=== PATIENT | female | born 1960 | race Asian ===

== ENCOUNTER 2017-07-16 12:46 | Emergency (ER) | payer OTHER ==
[~2017-07-16] VITALS: Ht 167.6 cm; Wt 55.3 kg
[2017-07-16] MEDS ORDERED: METFORMIN HCL500 M1 ORAL (12:59)
[2017-07-16] MEDS ORDERED: AMLODIPINE BESYL5 MG ORAL (12:59)
[2017-07-16] MEDS ORDERED: LEVEMIR FL100 UNIT/1 SUBQ (12:59)
[2017-07-16] MEDS ORDERED: Acetaminophen 500mg (ES) tab ORAL ONE (13:15)
[2017-07-16 13:21] VITALS: BP 153/75
--- NOTE | 2017-07-16 13:23 | Emergency Room Report ---
History of Present Illness General Chief Complaint: Multiple Trauma/Fall Source: Patient Present Illness HPI 56-year-old female patient presents ER complaining of left rib pain status post fall last night. Patient reports that she was walking to the kitchen and tripped on a step and fell on her left side. Denies pain and heaviness or problems with ambulation. Denies difficulty breathing. Reports pain with deep inspiration. Denies hitting her head or loss consciousness. Denies vomiting or vision changes. Denies fever, chest pain, shortness of breath. Denies dizziness. Allergies: Coded Allergies: No Known Allergies (Unverified , 07/16/17) Patient History Past Medical History: see triage record Reviewed Nursing Documentation: PMH: Agreed; PSxH: Agreed Nursing Documentation-PMH Past Medical History: No History, Except For Hx Hypertension: Yes Hx Diabetes: Yes Review of Systems All Other Systems: negative except mentioned in HPI Physical Exam Vital Signs Date Time Temp Pulse Resp B/P (MAP) Pulse Ox O2 Delivery O2 Flow Rate FiO2 07/16/17 12:54 98.0 78 18 153/75 98 Room Air 98.1 Sp02 EP Interpretation: reviewed, normal General Appearance: well appearing, no apparent distress, alert, GCS 15, non- toxic Head: normocephalic, atraumatic, other - negative Gordon sign, negative Raccoon eyes Eyes: bilateral eye normal inspection, bilateral eye PERRL ENT: hearing grossly normal, normal pharynx, no angioedema, normal voice, uvula midline, moist mucus membranes Neck: full range of motion Respiratory: lungs clear, normal breath sounds, no rhonchi, no respiratory distress, no accessory muscle use, no wheezing, speaking full sentences, other - no flail chest, no absent breath sounds, no bony deformity Cardiovascular #1: regular rate, rhythm, no edema Gastrointestinal: non tender, soft, no mass, non-distended, no guarding, no rebound Genitourinary: no CVA tenderness Musculoskeletal: back normal, digits/nails normal, gait/station normal, normal range of motion, non-tender, tender - left ribs, no deformity, no ecchymosis Neurologic: alert, oriented x3, responsive, motor strength/tone normal, sensory intact Psychiatric: mood/affect normal Skin: no rash, other - no ecchymosis Lymphatic: no adenopathy Medical Decision Making PA Attestation Dr. Obrien is my supervising Physician whom patient management has been discussed with. Diagnostic Impression: Primary Impression: Rib contusion ER Course Pt. presents to the ED c/o left rib pain Ddx considered but are not limited to fracture, sprain, strain, contusion, , pneumothorax. No absent breath sounds, no difficulty breathing, no flail chest, low suspicion for pneumothorax, will order chest x-ray to rule out. No signs of head trauma, denies head injury, dose not require head imaging at this time. Vital signs: are WNL, pt. is afebrile Ordered X-ray and pain medication. ER COURSE Provided with pain medication. An X-ray of the left ribs was ordered, results show no acute fracture, per the preliminary reading. An X-ray of the chest was ordered, results show no pneumothorax or acute disease , per the preliminary reading. Discuss results with patient. Informed patient treatment for rib fracture and rib contusion similar, rest and NSAIDs. Patient instructed on rest, ice, and heat. ER Precautions given, return if for new or worsening of symptoms including but not limited to SOB, chest pain, difficulty breathing. Followup with primary care provider for further management and referral. Discuss further imaging with MRI/CT as needed. DISCHARGE: -Rx provided for Tylenol for pain symptoms. -Rx provided for Lidocaine patches At this time pt. is stable for d/c to home. Patient is resting comfortably, in no acute distress, nontoxic appearing, talking without difficulty. Will provide printed patient care instructions, and any necessary prescriptions. Patient instructed to follow with primary care provider in 3 - 5 days and to request further orthopedic follow-up. Care plan and follow up instructions have been discussed with the patient prior to discharge. Take medications as directed. Patient questions asked and answered. Patient reports understanding and agreement to treatment plan. ER precautions given, patient instructed to return to ER immediately for any new or worsening of symptoms. - Please note that this Emergency Department Report was dictated using [employer] supervisor technology software, occasionally this can lead to erroneous entry secondary to interpretation by the dictation equipment. Chest X-Ray Diagnostic Results Chest X-Ray Diagnostic Results : Chest X-Ray Ordered: Yes # of Views/Limited/Complete: 1 View Indication: Chest Pain EP Interpretation: Yes PA Xray: Interpretation reviewed, and agrees with findings. Interpretation: no consolidation, no effusion, no pneumothorax, no acute cardiopulmonary disease Impression: No acute disease BEBETO Scribe Text Tone Contreras PA-C Other X-Ray Diagnostic Results Other X-Ray Diagnostic Results : X-Ray ordered: left ribs # of Views/Limited Vs Complete: 4 View Indication: Pain EP Interpretation: Yes PA Xray: Interpretation reviewed, by supervising MD, and agrees with findings. Interpretation: no dislocation, no soft tissue swelling, no fractures Impression: No acute disease PA Scribe Text Tone Contreras PA-C Last Vital Signs Date Time Temp Pulse Resp B/P (MAP) Pulse Ox O2 Delivery O2 Flow Rate FiO2 07/16/17 12:54 98.0 78 18 153/75 98 Room Air 98.1 Disposition: HOME, SELF-CARE Condition: Stable Scripts Lidocaine (Lidocaine) 1 Each Adh..patch 700 MG TP DAILY for 5 Days, #5 PATCH Prov: Raciel Contreras 07/16/17 Acetaminophen* (TYLENOL EXTRA STRENGTH*) 500 Mg Tablet 500 MG ORAL Q8H PRN for Prn Headache/Temp > 101, #30 TAB 0 Refills Prov: Raciel Contreras 07/16/17 Patient Instructions: Rib Contusion Additional Instructions: Patient instructed to follow up with primary care provider and discuss further treatment at that time. Patient instructed rest, ice and heat. Take medications as directed. Patient questions asked and answered. ER precautions given, patient instructed to return to ER immediately for any new or worsening of symptoms. Raciel Contreras July 16, 2017 13:23
[2017-07-16] MEDS ORDERED: TYLENOL EXTRA500 MG ORAL (14:25)
[2017-07-16] MEDS ORDERED: LIDOCAINE700 M1 TP (14:25)
[2017-07-16 14:32] VITALS: BP 153/75
--- NOTE | 2017-07-16 15:18 | Diagnostic Imaging Report ---
Indication: Left rib pain Technique: Multiple views of the left ribs, one view of the chest Comparison: none Findings: Small sclerotic lesion, likely a benign bone island, seen in the anterolateral left third rib. No acute fractures. No gross pneumothorax The lungs and pleural spaces are clear. The heart size is normal Impression: No acute process
== END 2017-07-16 14:33 | disposition home or self-care (01) ==
LOC: EDBD 12:46 → EMR 13:58
DX: S20.212A Contusion of left front wall of thorax, initial encounter (principal); W01.0XXA Fall on same level from slipping, tripping and stumbling without subsequent striking against object, initial encounter; Y92.000 Kitchen of unspecified non-institutional (private) residence as the place of occurrence of the external cause; I10 Essential (primary) hypertension; E11.9 Type 2 diabetes mellitus without complications
CPT/HCPCS: 71045; 99284

== ENCOUNTER 2017-12-10 17:56 | Emergency (ER) | payer OTHER ==
[~2017-12-10] VITALS: Ht 165.1 cm; Wt 55.3 kg
[~2017-12-10 17:56] MED LIST: AMLODIPINE BESYL5 MG ORAL; LEVEMIR FL100 UNIT/1 SUBQ; LIDOCAINE700 M1 TP; METFORMIN HCL500 M1 ORAL; TYLENOL EXTRA500 MG ORAL
[2017-12-10] MEDS ORDERED: LOSARTAN POTASS25 MG ORAL (18:04)
--- NOTE | 2017-12-10 18:32 | Emergency Room Report ---
History of Present Illness General Chief Complaint: Laceration Source: Patient, Medical Record Present Illness HPI 57 YO female presents to the ED c/o laceration to the Left index finger sustained by a cutting knife IRRIGATOR OVERHEAD. pt. denies bleeding at this time, denies taking blood thinning medications. pt. reports pain ix 2/10 in severity. She is right hand dominant. She reports that she is UTD with tetanus vaccination. Allergies: Coded Allergies: No Known Allergies (Unverified , 07/16/17) Patient History Past Medical History: see triage record Past Surgical History: none Pertinent Family History: none Last Menstrual Period: menopause Now: No Reviewed Nursing Documentation: PMH: Agreed; PSxH: Agreed Nursing Documentation-PMH Past Medical History: No History, Except For Hx Hypertension: Yes Hx Diabetes: Yes Review of Systems All Other Systems: negative except mentioned in HPI Physical Exam Vital Signs Date Time Temp Pulse Resp B/P (MAP) Pulse Ox O2 Delivery O2 Flow Rate FiO2 12/10/17 17:58 98.3 75 18 167/82 95 Room Air 98.2 Sp02 EP Interpretation: reviewed, normal General Appearance: no apparent distress, alert, GCS 15, non-toxic Head: normocephalic, atraumatic ENT: hearing grossly normal, normal voice Neck: full range of motion Respiratory: lungs clear, normal breath sounds, speaking full sentences Cardiovascular #1: regular rate, rhythm, normal capillary refill Musculoskeletal: back normal, gait/station normal, normal range of motion, non- tender Neurologic: alert, oriented x3, responsive, motor strength/tone normal, sensory intact, normal gait, speech normal, grossly normal Psychiatric: judgement/insight normal Skin: normal color, no rash, warm/dry, well hydrated, laceration - 0.5cm flap laceration that is aligned well and not bleeding, no obvious fb. mostly superficial Procedures Laceration/Wound Repair Laceration/Wound Repair : Consent: Verbal Wound Location: upper extremity - left index finger Wound's Depth, Shape: flap Wound Length (cm): 1 Wound Explored: clean Irrigated w/ Saline (ccs): 300 Betadine Prep?: No Wound Repaired With: Dermabond Layer Closure?: No Sterile Dressing Applied?: No Splint Applied?: Yes Type of Splint Applied: Finger splint Sling Applied?: No Patient Tolerated: Well Complications: None Medical Decision Making PA Attestation Dr. Castaneda is my supervising Physician whom patient management has been discussed with. Diagnostic Impression: Primary Impression: Laceration ER Course 57 YO female presents to the ED c/o laceration to the Left index finger sustained by a cutting knife IRRIGATOR OVERHEAD. pt. denies bleeding at this time, denies taking blood thinning medications. pt. reports pain ix 2/10 in severity. She is right hand dominant. She reports that she is UTD with tetanus vaccination. Ddx considered but are not limited to laceration, tendon injury, cellulitis, amputation Vital signs: are WNL, pt. is afebrile H&PE are most consistent with: Left index finger flap laceration approx 0.5 cm in length ORDERS: none required at this time, the diagnosis is clinical ED INTERVENTIONS: - The wound was copiously irrigated with normal saline, and explored for foreign body for which no FB was found. - The wound was approximated with derma-hobson. - Left index finger splint applied by word processor technician. Pt. remains neurovascularly intact. Discussed with patient: That we make every effort to approximate the laceration as best as we can so that scarring will be as cosmetically pleasing as possible with our limited cosmetic skill set in the Emergency dept. Regardless of our best efforts there will be scarring after laceration repair. The extent of scarring is unknown at this time. DISCHARGE: At this time pt. is stable for d/c to home. Will provide printed patient care instructions, and any necessary prescriptions. Care plan and follow up instructions have been discussed with the patient prior to discharge. Last Vital Signs Date Time Temp Pulse Resp B/P (MAP) Pulse Ox O2 Delivery O2 Flow Rate FiO2 12/10/17 17:58 98.3 75 18 167/82 95 Room Air 98.2 Disposition: HOME, SELF-CARE Condition: Stable Patient Instructions: Nonsutured Laceration Care Additional Instructions: Take medications as directed. *Keep dry, the glue will come off naturally . avoid using finger/bending finger for 5 days. Follow up with a Primary Care Provider in 3-5 days, even if your symptoms have resolved. --Please review list of primary care clinics, if you do not already have a primary care provider Return sooner to ED if new symptoms occur, or current symptoms become worse. if you have more tenderness, redness and warmth to the site of the cut. - Please note that this Emergency Department Report was dictated using [employer]pot feeder technology software, occasionally this can lead to erroneous entry secondary to interpretation by the dictation equipment. Margarita Hernández Dec 10, 2017 18:32
[2017-12-10 18:34] VITALS: BP 167/82
[2017-12-10 18:53] VITALS: BP 167/82
== END 2017-12-10 18:53 | disposition home or self-care (01) ==
LOC: EMR 18:25
DX: S61.211A Laceration without foreign body of left index finger without damage to nail, initial encounter (principal); W26.0XXA Contact with knife, initial encounter; Y92.9 Unspecified place or not applicable; I10 Essential (primary) hypertension; E11.9 Type 2 diabetes mellitus without complications
CPT/HCPCS: 12001; 99283; Z7502

== ENCOUNTER 2018-02-03 11:57 | Emergency (ER) | payer OTHER ==
[~2018-02-03] VITALS: Ht 170.2 cm; Wt 57.6 kg
[~2018-02-03 11:57] MED LIST changes: +LOSARTAN POTASS25 MG ORAL
[2018-02-03 12:01] VITALS: BP 135/71
[2018-02-03 12:51] LABS: BILIRUBIN, URINE NEGATIVE (NEGATIVE); COLOR,URINE PALE YELLOW; GLUCOSE, URINE (UA) 2+ (NEGATIVE); KETONES,URINE NEGATIVE (NEGATIVE); LEUKOCYTE ESTERASE ,URINE NEGATIVE (NEGATIVE); NITRITE,URINE NEGATIVE (NEGATIVE); PH,URINE 5 (4.5-8.0); PROTEIN,URINE 4+ (NEGATIVE); UROBILINOGEN,URINE NORMAL MG/DL (0.0-1.0)
[2018-02-03 12:52] LABS: APPEARANCE,URINE SLIGHTLY CLOUDY
[2018-02-03] MEDS ORDERED: Prochlorperazine 10mg tab ORAL ONE (13:00)
--- NOTE | 2018-02-03 13:55 | Diagnostic Imaging Report ---
Indications: Headache and dizziness Technique: Spiral acquisitions obtained through the brain. Angled axial and coronal 5 x 5 mm slices were reconstructed. Total dose length product 1498.62 mGycm. CTDI vol(s) 70.38 mGy. Dose reduction achieved using automated exposure control Comparison: None. Findings: There is mild cerebral cortical volume loss, somewhat out of proportion to patient's age. No acute intracranial hemorrhage or edema. No mass effect or midline shift. Normal hendrix-white differentiation. Intact calvarium. Visualized orbits and sinuses are unremarkable. The mastoids are clear. There are prominent physiologic bilateral basal ganglia calcifications Impression: Negative for acute intracranial bleed or mass effect Mild cortical volume loss The CT scanner at [facility] is accredited by the [employer] and the scans are performed using protocols designed to limit radiation exposure to as low as reasonably achievable to attain images of sufficient resolution adequate for diagnostic evaluation.
[2018-02-03 14:09] LABS: BASOPHILS % (AUTO) 0.5 % (0.0-2.0); EOSINOPHILS % (AUTO) 1.4 % (0.0-3.0); HEMATOCRIT 32.9 % (37.0-47.0); HEMOGLOBIN 11.2 G/DL (12.0-16.0); LYMPHOCYTES % (AUTO) 31.8 % (20.0-45.0); MEAN CORPUSCULAR VOLUME 87 FL (80-99); MONOCYTES % (AUTO) 6.6 % (1.0-10.0); NEUTROPHILS % (AUTO) 59.7 % (45.0-75.0); PLATELET COUNT 220 K/UL (150-450); RED BLOOD COUNT 3.79 M/UL (4.20-5.40); RED CELL DISTRIBUTION WIDTH 11.5 % (11.6-14.8); WHITE BLOOD COUNT 7.8 K/UL (4.8-10.8)
[2018-02-03 14:22] LABS: ANION GAP 8 mmol/L (5-15); BLOOD UREA NITROGEN 26 mg/dL (7-18); CALCIUM 8.4 MG/DL (8.5-10.1); CARBON DIOXIDE 27 MMOL/L (21-32); CHLORIDE 104 MMOL/L (98-107); CREATININE 1.4 MG/DL (0.55-1.30); POTASSIUM 4.1 MMOL/L (3.5-5.1); SODIUM 139 MMOL/L (136-145)
[2018-02-03 14:23] LABS: INR 0.9 (0.9-1.1)
[2018-02-03 14:26] LABS: ALANINE AMINOTRANSFERASE 25 U/L (12-78); ALBUMIN 3.2 G/DL (3.4-5.0); ALBUMIN/GLOBULIN RATIO 0.8 (1.0-2.7); ALKALINE PHOSPHATASE 76 U/L (46-116); ASPARTATE AMINO TRANSFERASE 20 U/L (15-37); BILIRUBIN,TOTAL 0.2 MG/DL (0.2-1.0)
--- NOTE | 2018-02-03 14:51 | Emergency Room Report ---
History of Present Illness General Chief Complaint: Headache Source: Patient, Family Member Present Illness HPI 57-year-old female presents to the emergency department complaining of 8 out of 10 in severity progressive headache 1 week that is pounding and on the left side. Patient states that her headache goes away slightly after taking Tylenol however it does return after several hours. Patient denies trauma or fall denies taking blood thinning medications. Patient has a history of high blood pressure and diabetes as well as CKD she is stage IV. She reports dizziness as well durring VICK, denies visual changes or vomiting. pt. reports some nausea. Deneis hx of VICK's or migraines. Denies anuria, hematuria, dysuria or urinary frequency. Pt denies any other symptoms than VICK, nausea and dizziness. pt. does not describe vertigo. Denies CP, Palpitations, LOC, AMS, paresthesias, or a sudden onset of a severe headache. Allergies: Coded Allergies: No Known Allergies (Unverified , 02/03/18) Patient History Past Medical History: see triage record Past Surgical History: none Pertinent Family History: none Now: No Reviewed Nursing Documentation: PMH: Agreed; PSxH: Agreed Nursing Documentation-PMH Past Medical History: No History, Except For Hx Hypertension: Yes Hx Diabetes: Yes Review of Systems All Other Systems: negative except mentioned in HPI Physical Exam Vital Signs Date Time Temp Pulse Resp B/P (MAP) Pulse Ox O2 Delivery O2 Flow Rate FiO2 02/03/18 12:01 98.1 75 12 135/71 97 Room Air Sp02 EP Interpretation: reviewed, normal General Appearance: no apparent distress, alert, GCS 15, non-toxic Head: normocephalic, atraumatic Eyes: bilateral eye normal inspection, bilateral eye PERRL ENT: hearing grossly normal, normal voice Neck: full range of motion Respiratory: chest non-tender, lungs clear, normal breath sounds, speaking full sentences Cardiovascular #1: regular rate, rhythm, no edema Gastrointestinal: non tender, soft Rectal: deferred Genitourinary: normal inspection, no CVA tenderness Musculoskeletal: back normal, gait/station normal, normal range of motion, non- tender Neurologic: alert, oriented x3, responsive, motor strength/tone normal, sensory intact, speech normal, no pronator, other - No facial droop, equal color worker strength, no Asterixs, grossly normal Psychiatric: judgement/insight normal Skin: normal color, no rash, warm/dry, well hydrated Lymphatic: no adenopathy Medical Decision Making PA Attestation Dr. Castaneda is my supervising Physician whom patient management has been discussed with. Diagnostic Impression: Primary Impression: Headache Qualified Codes: R51 - Headache Additional Impressions: Hematuria Qualified Codes: R31.9 - Hematuria, unspecified Cystitis ER Course 57-year-old female presents to the emergency department complaining of 8 out of 10 in severity progressive headache 1 week that is pounding and on the left side. Patient states that her headache goes away slightly after taking Tylenol however it does return after several hours. Patient denies trauma or fall denies taking blood thinning medications. Patient has a history of high blood pressure and diabetes as well as CKD she is stage IV. She reports dizziness as well during VICK, denies visual changes or vomiting. pt. reports some nausea. Deneis hx of VICK's or migraines. Denies anuria, hematuria, dysuria or urinary frequency. Pt denies any other symptoms than VICK, nausea and dizziness. pt. does not describe vertigo. Denies CP, Palpitations, LOC, AMS, paresthesias, or a sudden onset of a severe headache. Ddx considered but are not limited to migraine, SAH, Pseudomotor Cerebri,, Mass lesion, Cluster VICK, Tension VICK, Post lumbar puncture VICK, cardiac etiology, electrolyte disturbance. Vital signs: are WNL, pt. is afebrile H&PE are most consistent with migraine headache ORDERS: - CBC: WNL -: CMP: Cr 1.5 and BUN 22 BS199 -Troponin : Negative -CT Head No Contrast: unremarkable -UA: hematuria, squamous cells, protein and glucose, - Will treat for possible infected renal stone/ cystitis ED INTERVENTIONS: - Compazine PO -IM Toradol DISCHARGE: At this time pt. is stable for d/c to home. Will provide printed patient care instructions, and any necessary prescriptions. Care plan and follow up instructions have been discussed with the patient prior to discharge. Labs Test 02/03/18 12:30 02/03/18 13:49 Urine Color Pale yellow Urine Appearance Slightly cloudy Urine pH 5 (4.5-8.0) Urine Specific Mcdonough 1.015 (1.005-1.035) Urine Protein 4+ (NEGATIVE) Urine Glucose (UA) 2+ (NEGATIVE) Urine Ketones Negative (NEGATIVE) Urine Blood 3+ (NEGATIVE) Urine Nitrite Negative (NEGATIVE) Urine Bilirubin Negative (NEGATIVE) Urine Urobilinogen Normal MG/DL (0.0-1.0) Urine Leukocyte Esterase Negative (NEGATIVE) Urine RBC 5-10 /HPF (0 - 2) Urine WBC 2-4 /HPF (0 - 2) Urine Squamous Epithelial Cells Moderate /LPF (NONE/OCC) Urine Bacteria Few /HPF (NONE) Urine Granular Casts 2-4 /LPF (NONE) White Blood Count 7.8 K/UL (4.8-10.8) Red Blood Count 3.79 M/UL (4.20-5.40) Hemoglobin 11.2 G/DL (12.0-16.0) Hematocrit 32.9 % (37.0-47.0) Mean Corpuscular Volume 87 FL (80-99) Mean Corpuscular Hemoglobin 29.5 PG (27.0-31.0) Mean Corpuscular Hemoglobin Concent 34.0 G/DL (32.0-36.0) Red Cell Distribution Width 11.5 % (11.6-14.8) Platelet Count 220 K/UL (150-450) Mean Platelet Volume 8.0 FL (6.5-10.1) Neutrophils (%) (Auto) 59.7 % (45.0-75.0) Lymphocytes (%) (Auto) 31.8 % (20.0-45.0) Monocytes (%) (Auto) 6.6 % (1.0-10.0) Eosinophils (%) (Auto) 1.4 % (0.0-3.0) Basophils (%) (Auto) 0.5 % (0.0-2.0) Prothrombin Time 9.8 SEC (9.30-11.50) Prothromb Time International Ratio 0.9 (0.9-1.1) Activated Partial Thromboplast Time 29 SEC (23-33) Sodium Level 139 MMOL/L (136-145) Potassium Level 4.1 MMOL/L (3.5-5.1) Chloride Level 104 MMOL/L (98-107) Carbon Dioxide Level 27 MMOL/L (21-32) Anion Gap 8 mmol/L (5-15) Blood Urea Nitrogen 26 mg/dL (7-18) Creatinine 1.4 MG/DL (0.55-1.30) Estimat Glomerular Filtration Rate 38.7 mL/min (>60) Glucose Level 150 MG/DL (74-106) Calcium Level 8.4 MG/DL (8.5-10.1) Total Bilirubin 0.2 MG/DL (0.2-1.0) Aspartate Amino Transf (AST/SGOT) 20 U/L (15-37) Alanine Aminotransferase (ALT/SGPT) 25 U/L (12-78) Alkaline Phosphatase 76 U/L (46-116) Troponin I 0.015 ng/mL (0.000-0.056) Total Protein 7.4 G/DL (6.4-8.2) Albumin 3.2 G/DL (3.4-5.0) Globulin 4.2 g/dL Albumin/Globulin Ratio 0.8 (1.0-2.7) EKG Diagnostic Results EP Interpretation: Dr. Castaneda Rate: normal - 74 bpm Rhythm: NSR ST Segments: no acute changes ASA given to the pt in ED: No PA Scribe Text This Interpretation was scribed by BEBETO Hernández. CT/MRI/US Diagnostic Results CT/MRI/US Diagnostic Results : Imaging Test Ordered: CT head no contrast Impression No evidence of acute fracture, hemorrhage, or intracranial process -Per official radiology report- Please see report for specific details. Last Vital Signs Date Time Temp Pulse Resp B/P (MAP) Pulse Ox O2 Delivery O2 Flow Rate FiO2 02/03/18 12:01 98.1 75 12 135/71 97 Room Air Disposition: HOME, SELF-CARE Condition: Stable Scripts Nitrofurantoin Monohyd/M-Cryst* (MACROBID 100 MG*) 100 Mg Capsule 100 MG ORAL EVERY 12 HOURS for 5 Days, #10 CAP Prov: Margarita Hernández 02/03/18 Aspirin/Acetaminophen/Caffeine (EXCEDRIN MIGRAINE GELTAB) 1 Each Tablet 1 EACH PO Q6HR, #20 TAB Prov: Margarita Hernández 02/03/18 Prochlorperazine (COMPAZINE*) 10 Mg Tablet 10 MG ORAL Q6H PRN for For Headache, #3 TAB Prov: Margarita Hernández 02/03/18 Referrals: [facility],REFERRING (PCP) Patient Instructions: General Headache Without Cause Additional Instructions: Take medications as directed. Follow up with a Primary Care Provider in 3-5 days For a referral to have NEUROLOGIST Evaluation, even if your symptoms have resolved. --Please review list of primary care clinics, if you do not already have a primary care provider Return sooner to ED if new symptoms occur, or current symptoms become worse. - Please note that this Emergency Department Report was dictated using [employer] specialist technology software, occasionally this can lead to erroneous entry secondary to interpretation by the dictation equipment. Margarita Hernández Feb 03, 2018 14:51
[2018-02-03] MEDS ORDERED: EXCEDRIN MIGRA1 EACH PO (15:36)
[2018-02-03] MEDS ORDERED: COMPAZINE10 MG ORAL (15:36)
[2018-02-03] MEDS ORDERED: NITROFURANTOIN100 M2 ORAL (15:36)
[2018-02-03 16:22] VITALS: BP 110/85
--- NOTE | 2018-02-04 16:36 | Cardiology Report ---
APPROVED REPORT EKG Measurement Heart [id number] Normal sinus rhythm Nonspecific T wave abnormality Abnormal ECG
== END 2018-02-03 15:47 | disposition home or self-care (01) ==
LOC: EMR 12:31
DX: R51 Headache (principal); N30.91 Cystitis, unspecified with hematuria; I10 Essential (primary) hypertension; E11.9 Type 2 diabetes mellitus without complications
CPT/HCPCS: 36415; 70450; 80053; 81003; 84484; 85025; 85610; 85730; 93005; 99284